=== PATIENT | male | born 1970 | race Caucasian/White ===

== ENCOUNTER 2017-09-17 16:27 | Emergency (ER) | payer BC, OTHER ==
[~2017-09-17] VITALS: Ht 177.8 cm; Wt 97.0 kg
[~2017-09-17 16:27] MED LIST: ALLO300T2 PO; ASPI325T PO; CEFP250T PO; HYDR-3533 PO; METO25 PO; OMEP20TA39 PO; ROSU10 PO; VALT500T PO
[2017-09-17 16:34] VITALS: BP 136/87; PULSE 64; RESP 18; TEMP 97.9; O2SAT 97
[2017-09-17] MEDS ORDERED: TETANUS/DIPHTHERIA TOXOID ADULT 0.5 ML VIAL IM ONE (16:45)
[2017-09-17] MEDS ORDERED: OMEP40CA2 PO (16:46)
[2017-09-17] MEDS ORDERED: METO25TA3 PO (16:46)
[2017-09-17] MEDS ORDERED: VALT500T PO (16:46)
[2017-09-17] MEDS ORDERED: ROSU10 PO (16:46)
[2017-09-17] MEDS ORDERED: ASPI-516 CHEW (16:46)
[2017-09-17] MEDS ORDERED: ALLO300T2 PO (16:46)
--- NOTE | 2017-09-17 17:18 | RADRPT ---
EXAM DATE/TIME: 09/17/2017 16:53 [place] COMPARISON: No previous studies available for comparison. INDICATIONS : Left foot fifth digit pain. Patient states a stainless steel table fell on his foot. MEDICAL HISTORY : None. SURGICAL HISTORY : None. ENCOUNTER: Initial ACUITY: 1 day PAIN SCORE: 1/10 LOCATION: Left foot, fifth digit. FINDINGS: There is a mildly displaced fracture proximal phalanx left fifth toe. No dislocation. No other fractu res are identified. CONCLUSION: 1. Mildly displaced fracture proximal phalanx left fifth toe. Jalil Astudillo MD on September 17, 2017 at 17:15 Board Certified Radiologist. This report was verified electronically.
[2017-09-17] MEDS ORDERED: ceFAZolin 2 GM PREMIX 50 ML IV ONE (17:45)
--- NOTE | 2017-09-17 17:49 | PD ---
HPI Chief Complaint: Laceration/Skin Injury Time Seen by Provider: 18:00 Travel History International Travel<30 days: No Contact w/Intl Traveler<30days: No Traveled to known affect area: No History of Present Illness HPI 46-year-old male here with laceration to the left fifth toe. Injury occurred when a table fell onto the foot prior to arrival. He reports pain and mild paresthesia around the laceration but has normal sensation to the distal portion of the toe. He sustained no other injuries. Tetanus immunization is unknown. Pain severity is moderate. No alleviating factors. PFSH Past Medical History Hx Anticoagulant Therapy: Yes (ASA 81MG DAILY) Anxiety: Yes Cancer: No Cardiovascular Problems: No Diabetes: No Diminished Hearing: No Endocrine: No Genitourinary: No Hepatitis: No Hiatal Hernia: No Immune Disorder: No Musculoskeletal: No Neurologic: No Psychiatric: No Reproductive: No Respiratory: Yes (SLEEP APNEA) Thyroid Disease: No Past Surgical History Body Medical Devices: NONE Oral Surgery: Yes (T&A) Social History Alcohol Use: Yes (5-6 DRINKS OF WINE/DAY) Tobacco Use: No Substance Use: No Allergies-Medications (Allergen,Severity, Reaction): Coded Allergies: No Known Allergies (Verified Adverse Reaction, Unknown, 09/17/17) Reported Meds & Prescriptions Reported Meds & Active Scripts Active Ultram (Tramadol HCl) 50 Mg Tab 50 Mg PO Q6H PRN 3 Days Keflex (Cephalexin) 500 Mg Cap 500 Mg PO Q6H 7 Days Reported Valtrex (Valacyclovir HCl) 500 Mg Tab 250 Mg PO EVERY OTHER DAY Crestor (Rosuvastatin Calcium) 10 Mg Tab 10 Mg PO DAILY Omeprazole 40 Mg Cap 40 Mg PO DAILY Metoprolol Tartrate 25 Mg Tab 25 Mg PO BID Aspirin 81 Mg Chew 81 Mg CHEW DAILY Allopurinol 300 Mg Tab 300 Mg PO DAILY Review of Systems Except as stated in HPI: all other systems reviewed are Neg Physical Exam Narrative GENERAL: Alert, well-appearing male in no acute distress SKIN: Laceration to the left foot dorsal aspect base of the fifth toe. Visible tendon duration. HEAD: Normocephalic. EYES: No scleral icterus. No injection or drainage. NECK: Supple, trachea midline. No JVD or lymphadenopathy. CARDIOVASCULAR: Regular rate and rhythm without murmurs, gallops, or rubs. RESPIRATORY: Breath sounds equal bilaterally. No accessory muscle use. GASTROINTESTINAL: Abdomen soft, non-tender, nondistended. MUSCULOSKELETAL: No cyanosis, or edema. Left foot: Laceration to the left foot dorsal aspect base of the fifth toe. Visible tendon laceration. Limited flexion and extension of the fifth toe. Brisk cap refill. Reports mild paresthesia of the left fifth toe but is able to feel sharp sensation on exam. 2+ dorsal pedis pulse. Data Data Last Documented VS Vital Signs Date Time Temp Pulse Resp B/P (MAP) Pulse Ox O2 Delivery O2 Flow Rate FiO2 09/17/17 16:34 97.9 64 18 136/87 (103) 97 Orders Orders Tetanus/Diphtheria Tox Adult (Tetanus/Di (09/17/17 16:45) Toe (Min 2vws) (09/17/17 ) Cefazolin 2 Gm Premix (Ancef 2 Gm Premix (09/17/17 17:45) Iv Access Insert/Monitor (09/17/17 17:40) [facility] Medical Decision Making Medical Screen Exam Complete: Yes Emergency Medical Condition: Yes Differential Diagnosis Foot laceration, tendon laceration, toe fracture Narrative Course 46-year-old male here with laceration to the left fifth toe. The laceration is over the dorsal aspect with an underlying tendon laceration. He reports mild paresthesia around the laceration but has normal sensation to the distal portion of the toe. Brisk cap refill. xray reveal proximal phalanx fracture. X -ray findings discussed at length with patient. He is aware that he is going to need follow-up with podiatry for tendon repair. The case was discussed with my attending physician Dr. Templeton who will contact on-call podiatry to ensure follow-up. Primary closure will be performed in the emergency department. The wound was extensively irrigated. Primary closure performed. Posterior splint ordered, patient declined. He agreed to a postop shoe. He was put on crutches. He was given 2 gram CEFAZOLIN IV, tetanus immunization updated. Patient to follow-up with on-call assisted living care manager Dr. Blum this week. Procedures Procedure Narrative LACERATION LOCATION: Left foot LENGTH: 2 cm NUMBER OF STITCHES/FARHAN: 5 REPAIR: The area of the laceration was prepped with Betadine and sterilely draped. The laceration was infiltrated with 1% lidocaine. The wound was copiously irrigated and explored without evidence of foreign body, tendon injury or neurovascular injury. The wound was closed using 3-0 Ethilon. This was a single layer repair. A sterile dressing was applied. The patient was advised to keep the dressing clean and dry. Patient tolerated the procedure well. Diagnosis Primary Impression: Fracture of proximal phalanx of toe Additional Impressions: Tendon laceration Laceration of left foot Qualified Codes: S91.312A - Laceration without foreign body, left foot, initial encounter Referrals: Conner Blum DPM Additional Instructions: Do not submerge the wound in water. You May begin washing the area with soap and water daily. Pat the area dry and apply clean dry dressing. Where the postop shoe and crutches at all times while ambulating Make an appointment for follow-up with Dr. Blum [facility] on Thursday. If you prefer to see another assisted living care manager please make an appointment with them. Scripts Tramadol (Ultram) 50 Mg Tab 50 MG PO Q6H Y for PAIN for 3 Days, #12 TAB 0 Refills Prov: Jacinto Templeton MD 09/17/17 Cephalexin (Keflex) 500 Mg Cap 500 MG PO Q6H for Infection for 7 Days, #28 CAP 0 Refills Prov: Nasrin Thomas 09/17/17 Disposition: 01 DISCHARGE HOME Condition: Stable Nasrin Thomas Sep 17, 2017 17:49
--- NOTE | 2017-09-17 18:04 | PD ---
Physical Exam Narrative GENERAL: SKIN: Warm and dry. LACERATION ON DORSUM OF LEFT 5TH DIGITI MINIMI, ABOUT 3CM IN LENGTH AND ALSO INVOLVING EXTENSOR TENDON LACERATION WELL HEAD: Atraumatic. Normocephalic. EYES: Pupils equal and round. No scleral icterus. No injection or drainage. ENT: No nasal bleeding or discharge. Mucous membranes pink and moist. NECK: Trachea midline. No JVD. CARDIOVASCULAR: Regular rate and rhythm. RESPIRATORY: No accessory muscle use. Clear to auscultation. Breath sounds equal bilaterally. GASTROINTESTINAL: Abdomen soft, non-tender, nondistended. Hepatic and splenic margins not palpable. MUSCULOSKELETAL: Extremities without clubbing, cyanosis, or edema. No obvious deformities. NEUROLOGICAL: Awake and alert. No obvious cranial nerve deficits. Motor grossly within normal limits. Five out of 5 muscle strength in the arms and legs. Normal speech. PSYCHIATRIC: Appropriate mood and affect; insight and judgment normal. Data Data Last Documented VS Vital Signs Date Time Temp Pulse Resp B/P (MAP) Pulse Ox O2 Delivery O2 Flow Rate FiO2 09/17/17 16:34 97.9 64 18 136/87 (103) 97 Orders Orders Tetanus/Diphtheria Tox Adult (Tetanus/Di (09/17/17 16:45) Toe (Min 2vws) (09/17/17 ) Cefazolin 2 Gm Premix (Ancef 2 Gm Premix (09/17/17 17:45) Iv Access Insert/Monitor (09/17/17 17:40) MDM Medical Record Reviewed: Yes Supervised Visit with SAMARA: Yes Narrative Course SAW PATIENT IN PERSON ALONG SIDE NAS, AGREE WITH FINDINGS OF EXTENSOR TENDON LACERATION WELL PHALANX FX OF LEFT 5TH DIGITI MINIMI, EXPLAINED TO PATIENT NEED FOR TENDON REPAIR BY [employer] (DR [employer] TODAY) ...RECCOMEND SPLINTING, POSTOP SHOE, TETANUS, ANTIBIOTIC EMPIRIC, AND FOLLOWUP Diagnosis Primary Impression: Fracture of proximal phalanx of toe Additional Impressions: Tendon laceration Laceration of left foot Qualified Codes: S91.312A - Laceration without foreign body, left foot, initial encounter Referrals: Conner Gaona DPM Additional Instruction: Do not submerge the wound in water. May begin washing the area with soap and water daily. Patent the area dry and apply clean dry dressing. Where the postop shoe and crutches at all times while ambulating Make an appointment for follow-up with Dr. Gaona [employer] on Thursday. If you prefer to see another welt maker please make an appointment with them. Disposition: 01 DISCHARGE HOME Condition: Stable Jacinto Templeton MD Sep 17, 2017 18:04
[2017-09-17] MEDS ORDERED: CEPH-460 PO (18:26)
[2017-09-17] MEDS ORDERED: TRAM50 PO (18:27)
== END 2017-09-17 19:10 | disposition home or self-care (01) ==
LOC: PHEFT 16:27
DX: S92.512B Displaced fracture of proximal phalanx of left lesser toe(s), initial encounter for open fracture (principal); W20.8XXA Other cause of strike by thrown, projected or falling object, initial encounter; Z23 Encounter for immunization
CPT/HCPCS: 12001; 73660; 90471; 90714; 96365; 99284; J0690